=== PATIENT | male | born 1995 | race Hispanic/Latino ===

== ENCOUNTER 2018-08-09 08:13 | Emergency (ER) | payer MEDICAID, OTHER ==
[2018-08-09] MEDS ORDERED: KETOROLAC TROMETHAMINE 60 MG/2 ML VIAL ONE (09:06)
== END 2018-08-09 09:32 | disposition home or self-care (01) ==
LOC: EDH 08:13
DX: S39.012A Strain of muscle, fascia and tendon of lower back, initial encounter (principal); Z88.6 Allergy status to analgesic agent; X58.XXXA Exposure to other specified factors, initial encounter; Y93.89 Activity, other specified; Y92.89 Other specified places as the place of occurrence of the external cause; Y99.8 Other external cause status
CPT/HCPCS: 96372; 99283; J1885

== ENCOUNTER 2019-06-23 12:18 | Emergency (ER) | payer OTHER ==
[2019-06-23] MEDS ORDERED: IBUPROFEN 600 MG TABLET PO ONE (13:20)
[2019-06-23 14:58] LABS: APPEARANCE,URINE Clear (CLEAR); BILIRUBIN,URINE Negative (NEGATIVE); COLOR,URINE Yellow (YELLOW); GLUCOSE, URINE (UA) Negative (NEGATIVE); KETONES,URINE Negative (NEGATIVE); LEUKOCYTE ESTERASE ,URINE Negative (NEGATIVE); NITRATE,URINE Negative (NEGATIVE); OCCULT BLOOD,URINE Negative (NEGATIVE); PH,URINE 7.5 (5.0-8.0); PROTEIN,URINE Negative (NEGATIVE)
[2019-06-23] MEDS ORDERED: DOXYCYCLINE HYCLATE 100 MG TABLET PO ONE (15:30)
== END 2019-06-23 15:50 | disposition home or self-care (01) ==
LOC: EDH 12:18
DX: N50.812 Left testicular pain (principal); Z88.8 Allergy status to other drugs, medicaments and biological substances
CPT/HCPCS: 76870; 81003

== ENCOUNTER 2020-01-29 07:24 | Emergency (ER) | payer OTHER ==
[2020-01-29] MEDS ORDERED: ACETAMINOPHEN 325 MG TAB ONE (07:48)
== END 2020-01-29 10:01 | disposition home or self-care (01) ==
LOC: EDH 07:24
DX: R50.9 Fever, unspecified (principal); Z20.828 Contact with and (suspected) exposure to other viral communicable diseases; Z87.891 Personal history of nicotine dependence; Z88.8 Allergy status to other drugs, medicaments and biological substances
CPT/HCPCS: 71045; 87426; 99284; U0003